=== PATIENT | female | born 1940 | race Caucasian/White ===

== ENCOUNTER 2017-06-09 10:36 | Day surgery (SDC) | payer MEDICARE ==
[2017-05-29 15:43] VITALS: BMI 18.2
[~2017-06-09 10:36] MED LIST: LACTATED RINGERS 1,000 ML IV SCH; LIDOCAINE 1% 20 ML VIAL (10MG/ML) FOR IV START INTRADERMA PRN; ONDANSETRON 4 MG/2 ML VIAL IVP ONE
[2017-06-09] MEDS: CYCLOPENTOLATE 1% OPHTH SOLN 2 ML BTL OP ONE ×3 (12:20→12:37)
[2017-06-09 12:23] VITALS: RESP 16; TEMP 97.9
[2017-06-09] MEDS: FLURBIPROFEN 0.03% OPHTH DROPS 2.5 ML BTL OP ONE ×3 (12:23→12:43)
[2017-06-09] MEDS: PHENYLEPHRINE 10% OPHTH DROPS 5 ML BTL OP ONE ×3 (12:26→12:44)
[2017-06-09] MEDS ORDERED: PROPOFOL 10 MG/ML 20 ML VIAL IV ONE (12:51)
[2017-06-09] MEDS ORDERED: HYALURONATE SODIUM INTRAOCULAR 1 EACH SYRINGE (10MG/ML) INTRAOCULA ONE (12:56)
[2017-06-09] MEDS ORDERED: BALANCED SALT IRRIG SOLN COMB2 15 ML IRRIG.SOLN INTRAOCULA ONE (12:56)
--- NOTE | 2017-06-09 13:14 | P.OP ---
Date of Procedure: 06/09/17 Procedure(s) Performed: PREOPERATIVE DIAGNOSIS: Cataract, right eye. POSTOPERATIVE DIAGNOSIS: Cataract, right eye. OPERATION: Phacoemulsification cataract, right eye. DESCRIPTION OF PROCEDURE: The patient was taken to the preoperative holding area. Intravenous Propofol was given so as to bring about adequate sedation. The following mixture was given for local anesthesia: 5 mL of 2% lidocaine, 5 mL of 0.75% Marcaine, and 1 mL of Wydase. Approximately 4 mL was injected in the retrobulbar space of the surgical eye. Additional 1 mL was then directed to the temporal area of the surgical eye. This was performed to allow adequate neurological block of the facial muscles. The patient was revived and then taken into the operative room. The patient was prepped and draped in the usual sterile manner for the operative eye. A lid speculum was put into position. The conjunctiva was resected back from the limbus in the 12 o'clock position. Bleeding was controlled with electrocautery. A #69 blade was then used and a half-thickness scleral incision approximately 1-mm posterior to the limbus was made on bare sclera. This was shelved in the clear cornea using a crescent knife. Next a 15-degree blade was used to make a stab incision at the 3 o' clock position at the corneolimbal interface. Keratome blade was then used and the superior wound was extended into the anterior chamber. Viscoelastic was injected into the anterior chamber and to maintain its form. Next, a cystotome was used and a continuous anterior capsulotomy was made without difficulty. Hydrodissection using a blunt cannula and BSS was performed. Phaco probe was then employed and a groove extending from 12 to 6 o'clock in the lens was created. A Prem wand was used through the stab incision so as to perform a divide and conquer technique. Next an irrigation aspiration probe was utilized and any residual cortex was removed from the eye. Again, viscoelastic was injected into the anterior chamber. An Thomsa posterior chamber lens implant was placed in the cartridge and injected into the anterior chamber without difficulty. The SinFindThatCourseey hook was utilized to spin the lens into position and this was again performed without any difficulty. The irrigation and aspiration probe was again employed and any residual viscoelastic was removed from the eye. Then BSS was injected into the limbal stab incision and the anterior chamber re-inflated. The conjunctiva was reapproximated using electrocautery. One drop of 0.25% Timoptic was placed over the corneal along with TobraDex ophthalmic ointment. Two sterile patches and a Elkins eye shield were taped into position. The patient was transported to the recovery room in stable condition. Pathology: none sent Condition: stable Disposition: same day
[2017-06-09 13:39] VITALS: BP 160/77; PULSE 66
[2017-06-09] MEDS ORDERED: EPINEPHrine (PF) 0.5 ML in BALANCED SALT IRRIG SOLN COMB2 500 ML IRRIGATION ONE (13:40)
[2017-06-09] MEDS ORDERED: BUPIVACAINE (PF) 0.75% 5 ML, HYALURONIDASE, HUMAN RECOMB 150 UNIT, LIDOCAINE 2% (PF) 10... MISCELLANE ONE ×3 (23:00)
[2017-06-09] MEDS ORDERED: TIMOLOL 0.5% OPHTH SOLN (PF) 0.2 ML DROPERETTE OP ONE (23:00)
[2017-06-09] MEDS ORDERED: GENTAMICIN/PREDNISOL AC OPHTH OINT 3.5GM OPHTHALMIC ONE (23:00)
== END 2017-06-09 14:02 | disposition home or self-care (01) ==
LOC: OR 10:36
PROVIDERS: ATTEND Ophthalmology
DX: H25.11 Age-related nuclear cataract, right eye (principal); I10 Essential (primary) hypertension; R00.0 Tachycardia, unspecified; Z88.6 Allergy status to analgesic agent; Z79.899 Other long term (current) drug therapy; Z79.82 Long term (current) use of aspirin
CPT/HCPCS: 66984; V2632; J3470; J2001; J0171; J2704

== ENCOUNTER 2017-07-07 06:12 | Day surgery (SDC) | payer MEDICARE ==
[2017-07-03 12:24] VITALS: BMI 18.2
[~2017-07-07 06:12] MED LIST changes: -LIDOCAINE 1% 20 ML VIAL (10MG/ML) FOR IV START INTRADERMA PRN; -ONDANSETRON 4 MG/2 ML VIAL IVP ONE
[2017-07-07] MEDS: CYCLOPENTOLATE 1% OPHTH SOLN 2 ML BTL OP ONE ×3 (06:44→07:01)
[2017-07-07 06:46] VITALS: TEMP 97.2
[2017-07-07] MEDS ORDERED: LIDOCAINE 1% 20 ML VIAL (10MG/ML) FOR IV START INTRADERMA ONE (06:46)
[2017-07-07] MEDS: FLURBIPROFEN 0.03% OPHTH DROPS 2.5 ML BTL OP ONE ×3 (06:47→07:03)
[2017-07-07] MEDS: PHENYLEPHRINE 10% OPHTH DROPS 5 ML BTL OP ONE ×3 (06:50→07:07)
[2017-07-07] MEDS ORDERED: MIDAZOLAM 2 MG/2 ML VIAL ONE (07:52)
[2017-07-07] MEDS ORDERED: PROPOFOL 10 MG/ML 20 ML VIAL IV ONE (07:52)
[2017-07-07] MEDS ORDERED: fentaNYL (PF) 50 MCG/ML 2 ML AMP ONE (07:52)
[2017-07-07] MEDS ORDERED: EPINEPHrine (PF) 0.5 ML in BALANCED SALT IRRIG SOLN COMB2 500 ML IRRIGATION ONE (07:58)
[2017-07-07] MEDS ORDERED: HYALURONATE SODIUM INTRAOCULAR 1 EACH SYRINGE (10MG/ML) INTRAOCULA ONE (08:00)
[2017-07-07] MEDS ORDERED: BALANCED SALT IRRIG SOLN COMB2 15 ML IRRIG.SOLN IRRIGATION ONE (08:00)
--- NOTE | 2017-07-07 08:18 | P.OP ---
Date of Procedure: 07/07/17 Procedure(s) Performed: PREOPERATIVE DIAGNOSIS: Cataract, left eye. POSTOPERATIVE DIAGNOSIS: Cataract, left eye. OPERATION: Phacoemulsification cataract, left eye. DESCRIPTION OF PROCEDURE: The patient was taken to the preoperative holding area. Intravenous Propofol was given so as to bring about adequate sedation. The following mixture was given for local anesthesia: 5 mL of 2% lidocaine, 5 mL of 0.75% Marcaine, and 1 mL of Wydase. Approximately 4 mL was injected in the retrobulbar space of the surgical eye. Additional 1 mL was then directed to the temporal area of the surgical eye. This was performed to allow adequate neurological block of the facial muscles. The patient was revived and then taken into the operative room. The patient was prepped and draped in the usual sterile manner for the operative eye. A lid speculum was put into position. The conjunctiva was resected back from the limbus in the 12 o'clock position. Bleeding was controlled with electrocautery. A #69 blade was then used and a half-thickness scleral incision approximately 1-mm posterior to the limbus was made on bare sclera. This was shelved in the clear cornea using a crescent knife. Next a 15-degree blade was used to make a stab incision at the 3 o' clock position at the corneolimbal interface. Keratome blade was then used and the superior wound was extended into the anterior chamber. Viscoelastic was injected into the anterior chamber and to maintain its form. Next, a cystotome was used and a continuous anterior capsulotomy was made without difficulty. Hydrodissection using a blunt cannula and BSS was performed. Phaco probe was then employed and a groove extending from 12 to 6 o'clock in the lens was created. A Prem wand was used through the stab incision so as to perform a divide and conquer technique. Next an irrigation aspiration probe was utilized and any residual cortex was removed from the eye. Again, viscoelastic was injected into the anterior chamber. An Thomas posterior chamber lens implant was placed in the cartridge and injected into the anterior chamber without difficulty. The Sinitembaseey hook was utilized to spin the lens into position and this was again performed without any difficulty. The irrigation and aspiration probe was again employed and any residual viscoelastic was removed from the eye. Then BSS was injected into the limbal stab incision and the anterior chamber re-inflated. The conjunctiva was reapproximated using electrocautery. One drop of 0.25% Timoptic was placed over the corneal along with TobraDex ophthalmic ointment. Two sterile patches and a Elkins eye shield were taped into position. The patient was transported to the recovery room in stable condition. Pathology: none sent Condition: stable Disposition: same day
[2017-07-07 08:41] VITALS: BP 164/77; PULSE 59; RESP 18
[2017-07-07] MEDS ORDERED: TIMOLOL 0.5% OPHTH DROPS 5 ML BTL OP ONE (23:00)
[2017-07-07] MEDS ORDERED: GENTAMICIN/PREDNISOL AC OPHTH OINT 3.5GM OPHTHALMIC ONE (23:00)
[2017-07-07] MEDS ORDERED: BUPIVACAINE (PF) 0.75% 5 ML, HYALURONIDASE, HUMAN RECOMB 150 UNIT, LIDOCAINE 2% (PF) 10... MISCELLANE ONE ×3 (23:00)
== END 2017-07-07 08:56 | disposition home or self-care (01) ==
LOC: OR 06:12
PROVIDERS: ATTEND Ophthalmology
DX: H25.12 Age-related nuclear cataract, left eye (principal); H18.459 Nodular corneal degeneration, unspecified eye; I10 Essential (primary) hypertension; Z79.82 Long term (current) use of aspirin; Z79.899 Other long term (current) drug therapy; Z79.3 Long term (current) use of hormonal contraceptives; Z88.6 Allergy status to analgesic agent
CPT/HCPCS: 66984; V2632; J2250; J3470; J2001; J0171; J3010; J2704

== ENCOUNTER → 2017-10-20 | Outpatient (CLI) | payer MEDICARE ==
--- NOTE | 2017-10-21 14:29 | MM ---
Reason for exam: screening (asymptomatic). Last mammogram was performed 2 years and 11 months ago. History: Patient is postmenopausal. Family history of breast cancer in mother. Physical Findings: A clinical breast exam by your physician is recommended on an annual basis and results should be correlated with mammographic findings. MG 3D Screening Mammo W/Cad Bilateral CC and MLO view(s) were taken. Prior study comparison: November 22, 2014, mammogram, performed at [facility]. March 23, 2013, mammogram, performed at [facility]. The breast tissue is heterogeneously dense. This may lower the sensitivity of mammography. Benign appearing bilateral calcifications. No suspicious abnormality. No significant changes when compared with prior studies. ASSESSMENT: Benign, BI-RAD 2 RECOMMENDATION: Routine screening mammogram of both breasts in 1 year.
== END | disposition home or self-care (01) ==
LOC: RADMAMWWP 10:42
PROVIDERS: ATTEND Family Medicine
DX: Z12.31 Encounter for screening mammogram for malignant neoplasm of breast (principal)
CPT/HCPCS: 77063; 77067

== ENCOUNTER → 2017-11-04 | Outpatient (CLI) | payer MEDICARE ==
--- NOTE | 2017-11-04 15:24 | US ---
EXAMINATION TYPE: US thyroid st tissue head/neck DATE OF EXAM: 11/04/2017 COMPARISON: NONE CLINICAL HISTORY: E05.90 Thyroid toxicosis. Hyperthyroidism GLAND SIZE: Right Lobe: 2.7 x 1.3 x 1.1 cm Overall Parenchyma: homogenous Left Lobe: 3.7 x 1.3 x 1.3 cm Overall Parenchyma: homogeneous Isthmus Thickness: 0.2 cm NODULES RIGHT: # of nodules measured on right: 0 LEFT: # of nodules measured on left: 0 ISTHMUS: # of nodules measured in the isthmus: 0 Bilateral neck scanned, no evidence of lymphadenopathy. IMPRESSION: No suspicious nodularity within the thyroid lobes.
== END | disposition home or self-care (01) ==
LOC: RADUSWWP 14:22
PROVIDERS: ATTEND Family Medicine
DX: E05.90 Thyrotoxicosis, unspecified without thyrotoxic crisis or storm (principal)
CPT/HCPCS: 76536

== ENCOUNTER → 2017-11-09 | Outpatient (CLI) | payer MEDICARE ==
--- NOTE | 2017-11-09 10:46 | CT ---
EXAMINATION TYPE: CT chest wo con DATE OF EXAM: 11/09/2017 COMPARISON: 02/11/2016 HISTORY: 77-year-old female SPN TECHNIQUE: Contiguous axial scanning of the chest without IV contrast. Coronal and sagittal reconstru ctions performed. CT DLP: 97.20 mGycm Automated exposure control for dose reduction was used. FINDINGS: Heart is normal size without pericardial effusion. Coronary vessel calcifications are fairly extensiv e and are remarkable for coronary disease. Borderline ectatic ascending aorta at 3.6 cm. Conventional arch vessel branching anatomy. Mild athero sclerotic arch calcifications. Extensive calcified mediastinal and hilar lymph nodes compatible with prior granulomatous disease. No thoracic lymphadenopathy by CT size criteria. Scattered calcified granulomas within the right lung. A noncalcified 6 mm right basilar pulmonary nodule remains unchanged from 2016. 4 mm pulmonary nodule along the superior right major fissure axial image 20 is stable. Biapical pleural parenchymal scarring. No consolidation or pleural effusion. Irregular area of cortical calcification measuring 1.7 cm lateral left kidney remains unchanged from 2016 suggesting a benign etiology. Bones: No osseous destructive process. IMPRESSION: 1. REDEMONSTRATED CAD AND PRIOR GRANULOMATOUS DISEASE. NO ACUTE PULMONARY PROCESS. 2. A COUPLE NONCALCIFIED PULMONARY NODULES MEASURING UP TO 6 MM ARE STABLE FROM 2016 COMPATIBLE WITH A BENIGN ETIOLOGY.
== END | disposition home or self-care (01) ==
LOC: RADCTMAIN 08:25
PROVIDERS: ATTEND Family Medicine
DX: R91.8 Other nonspecific abnormal finding of lung field (principal); J84.10 Pulmonary fibrosis, unspecified; I25.10 Atherosclerotic heart disease of native coronary artery without angina pectoris
CPT/HCPCS: 71250

== ENCOUNTER 2018-05-14 01:07 | Inpatient (IN) | payer MEDICARE ==
[2018-05-14 02:03] LABS: Basophils % (A) 1 %; Eosinophils # (A) 0.3 k/uL (0-0.7); Eosinophils % (A) 5 %; HCT 39.9 % (34.0-46.0); Lymphocytes # (A) 2.4 k/uL (1.0-4.8); Lymphocytes % (A) 39 %; MCH 28.7 pg (25.0-35.0); MCHC 32.5 g/dL (31.0-37.0); MCV 88.5 fL (80.0-100.0); Mean Platelet Volume 6.9; Monocytes # (A) 0.4 k/uL (0-1.0); Monocytes % (A) 6 %; Neutrophils # (A) 2.9 k/uL (1.3-7.7); Neutrophils % (A) 47 %; Platelet Count 246 k/uL (150-450); RBC 4.51 m/uL (3.80-5.40); RDW 13.8 % (11.5-15.5); WBC 6.1 k/uL (3.8-10.6)
[2018-05-14 02:15] LABS: INR 0.9 (<1.2); Partial Thromboplastin Time 25.1 sec (22.0-30.0); Prothrombin Time 9.7 sec (9.0-12.0)
[2018-05-14 02:25] LABS: ALT 19 U/L (9-52); AST 24 U/L (14-36); Albumin 4.1 g/dL (3.5-5.0); Alkaline Phosphatase 114 U/L (38-126); Anion Gap 8 mmol/L; Blood Urea Nitrogen 15 mg/dL (7-17); Calcium 9.5 mg/dL (8.4-10.2); Carbon Dioxide 27 mmol/L (22-30); Chloride 108 mmol/L (98-107); Glucose 97 mg/dL (74-99); Magnesium 2.3 mg/dL (1.6-2.3); Potassium 3.7 mmol/L (3.5-5.1); Sodium 143 mmol/L (137-145); Total Bilirubin 0.4 mg/dL (0.2-1.3); Total Protein 7.3 g/dL (6.3-8.2)
--- NOTE | 2018-05-14 02:28 | XR ---
EXAMINATION TYPE: XR chest 2V DATE OF EXAM: 05/14/2018 COMPARISON: 04/14/2015 HISTORY: Chest pain TECHNIQUE: Frontal and lateral views of the chest are obtained. FINDINGS: There is no heart failure nor confluent pneumonic infiltrate. Heart size is normal. There are numerous granulomata with calcification in the mediastinum. There is no pleural effusion. Bony th orax is intact. IMPRESSION: No active cardiopulmonary disease. Old granulomatous disease. No change.
--- NOTE | 2018-05-14 02:30 | ED ---
General Adult HPI - General Chief complaint: Recheck/Abnormal Lab/Rx Stated complaint: Chest Pain, High BP Time Seen by Provider: 05/14/18 02:29 Source: patient Mode of arrival: ambulatory Limitations: no limitations - History of Present Illness Initial comments: This patient is an 78-year-old woman who presents with complaint of chest pain that is been going on since about midnight. The patient states that she had been trying to rest. She had also a little bit of anxiety because her blood pressure has been elevated today. She states that she has taken her blood pressure medications. She was not having symptoms earlier, but she went to a flu shot and was told that they could not give her the shot because her blood pressure was over 200. The patient states that she tried taking her medication when she got home and resting comfortably blood pressure remained elevated. Tonight around midnight she noticed the chest pressure and was feeling a little bit nauseated. Onset/Timin -: hour(s) Location: chest Radiation: non-radiation Quality: dull Consistency: constant Improves with: none Worsens with: none Associated Symptoms: nausea/vomiting Treatments Prior to Arrival: none - Related Data Home Medications Medication Instructions Recorded Confirmed Aspirin 81 mg PO DAILY 04/01/15 05/14/18 Famotidine [Pepcid AC] 10 mg PO BID PRN 05/14/18 05/14/18 Previous Rx's Medication Instructions Recorded Acetaminophen Tab [Tylenol] 650 mg PO Q6HR PRN tab 05/15/18 Losartan [Cozaar] 100 mg PO QAM #30 tab 05/15/18 Nitroglycerin Sl Tabs [Nitrostat] 0.4 mg SUBLINGUAL Q5M PRN #30 tab 05/15/18 amLODIPine [Norvasc] 5 mg PO DAILY #30 tab 05/15/18 Allergies Allergy/AdvReac Type Severity Reaction Status Date / Time naproxen [From Aleve] Allergy elevated Verified 05/14/18 07:42 b/p,generalized skin redness Review of Systems ROS Statement: Those systems with pertinent positive or pertinent negative responses have been documented in the HPI. ROS Other: All systems not noted in ROS Statement are negative. Constitutional: Denies: fever, chills Respiratory: Denies: cough, dyspnea Cardiovascular: Reports: chest pain. Denies: palpitations, edema, syncope Gastrointestinal: Denies: abdominal pain, nausea, vomiting Genitourinary: Denies: dysuria, hematuria Musculoskeletal: Denies: back pain Skin: Denies: rash Neurological: Denies: headache, weakness, numbness Past Medical History Past Medical History: Eye Disorder, GERD/Reflux, Hyperlipidemia, Hypertension Additional Past Medical History / Comment(s): Rt Cataract REMOVED 06/09/17; HAS LT CATARACT. C/O CONSTIPATION. History of Any Multi-Drug Resistant Organisms: None Reported Past Surgical History: Hernia Repair, Orthopedic Surgery Additional Past Surgical History / Comment(s): Bunion Al Feet. EXC RT CATARACT. I&D OF SPINAL SITE. Past Anesthesia/Blood Transfusion Reactions: Family History of Problems w/ Anesthesia, Motion Sickness Additional Past Anesthesia/Blood Transfusion Reaction / Comment(s): SISTER TAKES LONG TIME TO AWAKEN. Past Psychological History: No Psychological Hx Reported Smoking Status: Never smoker Past Alcohol Use History: None Reported Past Drug Use History: None Reported - Past Family History Mother Family Medical History: Congestive Heart Failure (CHF), Deep Vein Thrombosis ( DVT) Brother(s) Family Medical History: Cancer Sister(s) Family Medical History: Cancer General Exam Limitations: no limitations General appearance: alert, in no apparent distress Head exam: Present: atraumatic, normocephalic Eye exam: Present: normal appearance ENT exam: Present: normal oropharynx Neck exam: Present: normal inspection Respiratory exam: Present: normal lung sounds bilaterally. Absent: respiratory distress, wheezes, rales, rhonchi, stridor, chest wall tenderness Cardiovascular Exam: Present: regular rate, normal rhythm, normal heart sounds. Absent: systolic murmur, diastolic murmur, rubs, gallop GI/Abdominal exam: Present: soft. Absent: distended, tenderness, guarding, rebound, rigid Extremities exam: Present: normal inspection, normal capillary refill. Absent: pedal edema, calf tenderness Back exam: Present: normal inspection. Absent: CVA tenderness (R), CVA tenderness (L) Neurological exam: Present: alert Skin exam: Present: warm, dry, intact, normal color. Absent: rash Course Vital Signs 05/14/18 05/14/18 05/14/18 01:08 01:36 02:00 Temperature 97.9 F Pulse Rate 64 54 L 51 L Pulse Rate [ Left Brachial] Respiratory 16 16 12 Rate Blood Pressure 200/87 189/106 Blood Pressure [Left Arm] O2 Sat by Pulse 99 98 99 Oximetry 05/14/18 05/14/18 05/14/18 02:30 03:00 03:30 Temperature Pulse Rate 60 58 L 55 L Pulse Rate [ Left Brachial] Respiratory 14 10 L 14 Rate Blood Pressure 170/80 188/85 167/81 Blood Pressure [Left Arm] O2 Sat by Pulse 98 99 Oximetry 05/14/18 05/14/18 04:00 04:21 Temperature 97.5 F L 97.6 F Pulse Rate 65 Pulse Rate [ 66 Left Brachial] Respiratory 18 18 Rate Blood Pressure 162/79 Blood Pressure 162/70 [Left Arm] O2 Sat by Pulse 98 99 Oximetry EKG Findings - EKG Comments: EKG Findings:: Possible old inferior infarct. - EKG Results: EKG: interpreted by DALE, sinus rhythm, normal axis, normal ST/T EKG shows: bradycardia (Rate 58 bpm) Medical Decision Making - Lab Data Result diagrams: 05/14/18 01:20 05/14/18 01:20 Lab Results 05/14/18 05/14/18 05/14/18 Range/Units 01:20 01:20 01:20 WBC 6.1 (3.8-10.6) k/uL RBC 4.51 (3.80-5.40) m/uL Hgb 13.0 (11.4-16.0) gm/dL Hct 39.9 (34.0-46.0) % MCV 88.5 (80.0-100.0) fL MCH 28.7 (25.0-35.0) pg MCHC 32.5 (31.0-37.0) g/dL RDW 13.8 (11.5-15.5) % Plt Count 246 (150-450) k/uL Neutrophils % 47 % Lymphocytes % 39 % Monocytes % 6 % Eosinophils % 5 % Basophils % 1 % Neutrophils # 2.9 (1.3-7.7) k/uL Lymphocytes # 2.4 (1.0-4.8) k/uL Monocytes # 0.4 (0-1.0) k/uL Eosinophils # 0.3 (0-0.7) k/uL Basophils # 0.0 (0-0.2) k/uL PT (9.0-12.0) sec INR (<1.2) APTT (22.0-30.0) sec Sodium 143 (137-145) mmol/L Potassium 3.7 (3.5-5.1) mmol/L Chloride 108 H (98-107) mmol/L Carbon Dioxide 27 (22-30) mmol/L Anion Gap 8 mmol/L BUN 15 (7-17) mg/dL Creatinine 0.65 (0.52-1.04) mg/dL Est GFR (CKD-EPI)AfAm >90 (>60 ml/min/1.73 sqM) Est GFR (CKD-EPI)NonAf 84 (>60 ml/min/1.73 sqM) Glucose 97 (74-99) mg/dL Calcium 9.5 (8.4-10.2) mg/dL Magnesium 2.3 (1.6-2.3) mg/dL Total Bilirubin 0.4 (0.2-1.3) mg/dL AST 24 (14-36) U/L ALT 19 (9-52) U/L Alkaline Phosphatase 114 (38-126) U/L Total Creatine Kinase 103 (30-135) U/L CK-MB (CK-2) 1.7 (0.0-2.4) ng/mL CK-MB (CK-2) Rel Index 1.7 Troponin I <0.012 (0.000-0.034) ng/mL Total Protein 7.3 (6.3-8.2) g/dL Albumin 4.1 (3.5-5.0) g/dL 05/14/18 Range/Units 01:20 WBC (3.8-10.6) k/uL RBC (3.80-5.40) m/uL Hgb (11.4-16.0) gm/dL Hct (34.0-46.0) % MCV (80.0-100.0) fL MCH (25.0-35.0) pg MCHC (31.0-37.0) g/dL RDW (11.5-15.5) % Plt Count (150-450) k/uL Neutrophils % % Lymphocytes % % Monocytes % % Eosinophils % % Basophils % % Neutrophils # (1.3-7.7) k/uL Lymphocytes # (1.0-4.8) k/uL Monocytes # (0-1.0) k/uL Eosinophils # (0-0.7) k/uL Basophils # (0-0.2) k/uL PT 9.7 (9.0-12.0) sec INR 0.9 (<1.2) APTT 25.1 (22.0-30.0) sec Sodium (137-145) mmol/L Potassium (3.5-5.1) mmol/L Chloride (98-107) mmol/L Carbon Dioxide (22-30) mmol/L Anion Gap mmol/L BUN (7-17) mg/dL Creatinine (0.52-1.04) mg/dL Est GFR (CKD-EPI)AfAm (>60 ml/min/1.73 sqM) Est GFR (CKD-EPI)NonAf (>60 ml/min/1.73 sqM) Glucose (74-99) mg/dL Calcium (8.4-10.2) mg/dL Magnesium (1.6-2.3) mg/dL Total Bilirubin (0.2-1.3) mg/dL AST (14-36) U/L ALT (9-52) U/L Alkaline Phosphatase (38-126) U/L Total Creatine Kinase (30-135) U/L CK-MB (CK-2) (0.0-2.4) ng/mL CK-MB (CK-2) Rel Index Troponin I (0.000-0.034) ng/mL Total Protein (6.3-8.2) g/dL Albumin (3.5-5.0) g/dL Disposition Clinical Impression: Chest pain Disposition: HOME SELF-CARE Condition: Fair Is patient prescribed a controlled substance at d/c from ED?: No
[2018-05-14 02:32] LABS: Creatine Kinase 103 U/L (30-135)
[2018-05-14 02:46] LABS: Creatine Kinase MB 1.7 ng/mL (0.0-2.4); Troponin I <0.012 ng/mL (0.000-0.034)
[2018-05-14] MEDS ORDERED: NITROGLYCERIN OINT 1 INCH/GM PACKET TOPICAL STA (02:49)
[2018-05-14] MEDS ORDERED: NITROGLYCERIN SL TABS 0.4 MG TAB SUBLINGUAL PRN (02:50)
[2018-05-14] MEDS ORDERED: ENALAPRILAT 1.25 MG/ML 1 ML VIAL IVP STA (02:55)
[2018-05-14 05:16] VITALS: BMI 18.1
[2018-05-14 07:12] LABS: Creatine Kinase 76 U/L (30-135)
[2018-05-14 07:22] LABS: Creatine Kinase MB 1.2 ng/mL (0.0-2.4); Troponin I <0.012 ng/mL (0.000-0.034)
[2018-05-14] MEDS ORDERED: ASPIRIN 325 MG TAB PO SCH (09:00)
[2018-05-14] MEDS ORDERED: LOSARTAN 25 MG TAB PO SCH (09:00)
[2018-05-14] MEDS ORDERED: LOSARTAN 50 MG TAB PO STA (10:09)
--- NOTE | 2018-05-14 10:11 | P.CRDCN ---
History of Present Illness Consult date: 05/14/18 Requesting physician: Edwin Parks Consult reason: chest pain, hypertension Chief complaint: Chest heaviness, hypertension History of present illness: This is a pleasant 78-year-old female with history of hypertension, no diabetes, no hyperlipidemia, nonsmoker, no EtOH, who is overall fairly active. She states that recently her blood pressure has been running quite high , she went to see her physician yesterday, blood pressure in the office was greater than 200 systolic, she was going there to get her flu shot. She states that they did not give her her flu shot because her blood pressure was too high. She went home, states that the blood pressure remained elevated in spite of her taking her blood pressure medication. She states then that she also noticed some mild pressure in the chest and for this reason came to the hospital for further evaluation. Chest x-ray did not reveal any active cardiopulmonary disease. EKG shows a sinus bradycardia with no acute changes. Blood pressure on arrival here 200/87, heart rate in the 60s, 99% on room air. Blood pressure this morning 162/70 with a heart rate in the 60s, 99% on room air. White blood cell count 6.1, hemoglobin 13, platelet count 246. Sodium 143 , potassium 3.7, BUN 15, creatinine 0.6. Troponins negative 2. Patient's home medications included losartan 50 mg daily, Pepcid twice a day, and a baby aspirin. Here the patient has been placed on a full aspirin, she was given one dose of enalapril IV on arrival here, continues to be on the losartan, and was also placed on Nitropaste. Past Medical History Past Medical History: Eye Disorder, GERD/Reflux, Hyperlipidemia, Hypertension Additional Past Medical History / Comment(s): Rt Cataract REMOVED 06/09/17; HAS LT CATARACT. C/O CONSTIPATION. History of Any Multi-Drug Resistant Organisms: None Reported Past Surgical History: Hernia Repair, Orthopedic Surgery Additional Past Surgical History / Comment(s): Bunion Al Feet. EXC RT CATARACT. I&D OF SPINAL SITE. Past Anesthesia/Blood Transfusion Reactions: Family History of Problems w/ Anesthesia, Motion Sickness Additional Past Anesthesia/Blood Transfusion Reaction / Comment(s): SISTER TAKES LONG TIME TO AWAKEN. Smoking Status: Never smoker - Past Family History Mother Family Medical History: Congestive Heart Failure (CHF), Deep Vein Thrombosis ( DVT) Brother(s) Family Medical History: Cancer Sister(s) Family Medical History: Cancer Medications and Allergies Home Medications Medication Instructions Recorded Confirmed Type Aspirin 81 mg PO DAILY 04/01/15 05/14/18 History Famotidine [Pepcid AC] 10 mg PO BID PRN 05/14/18 05/14/18 History Losartan Potassium 50 mg PO DAILY 05/14/18 05/14/18 History Allergies Allergy/AdvReac Type Severity Reaction Status Date / Time naproxen [From Aleve] Allergy elevated Verified 05/14/18 07:42 b/p,generalized skin redness Physical Exam Vitals: Vital Signs Temp Pulse Pulse Resp BP BP Pulse Ox 05/14/18 04:21 97.6 F 65 18 162/79 99 05/14/18 04:00 97.5 F L 66 18 162/70 98 05/14/18 03:30 55 L 14 167/81 05/14/18 03:00 58 L 10 L 188/85 99 05/14/18 02:30 60 14 170/80 98 05/14/18 02:00 51 L 12 189/106 99 05/14/18 01:36 54 L 16 98 05/14/18 01:08 97.9 F 64 16 200/87 99 Intake and Output 05/13/18 05/14/18 05/14/18 22:59 06:59 14:59 Other: Voiding Method Toilet # Voids 1 Weight 40.823 kg PHYSICAL EXAMINATION: GENERAL: 78-year-old female in no acute distress at the time of my examination HEENT: Head is atraumatic, normocephalic. Pupils equal, round. Sclera anicteric. Conjunctiva are clear. Mucous membranes of the mouth are moist. Neck is supple. There is no elevated jugular venous pressure. No carotid bruit is heard. HEART EXAMINATION: Heart S1 and S2 with soft systolic murmur is heard CHEST EXAMINATION: Lungs are clear to auscultation and precussion. No chest wall tenderness is noted on palpation or with deep breathing. ABDOMEN: Soft, nontender. Bowel sounds are heard. No organomegaly noted. EXTREMITIES: 2+ peripheral pulses with no evidence of peripheral edema and no calf tenderness noted. NEUROLOGIC patient is awake, alert and oriented 3 . Results 05/14/18 01:20 05/14/18 01:20 Cardiac Enzymes 05/14/18 05/14/18 05/14/18 Range/Units 01:20 01:20 06:20 AST 24 (14-36) U/L CK-MB (CK-2) 1.7 1.2 (0.0-2.4) ng/mL Troponin I <0.012 <0.012 (0.000-0.034) ng/mL Coagulation 05/14/18 Range/Units 01:20 PT 9.7 (9.0-12.0) sec APTT 25.1 (22.0-30.0) sec CBC 05/14/18 Range/Units 01:20 WBC 6.1 (3.8-10.6) k/uL RBC 4.51 (3.80-5.40) m/uL Hgb 13.0 (11.4-16.0) gm/dL Hct 39.9 (34.0-46.0) % Plt Count 246 (150-450) k/uL Comprehensive Metabolic Panel 05/14/18 Range/Units 01:20 Sodium 143 (137-145) mmol/L Potassium 3.7 (3.5-5.1) mmol/L Chloride 108 H (98-107) mmol/L Carbon Dioxide 27 (22-30) mmol/L BUN 15 (7-17) mg/dL Creatinine 0.65 (0.52-1.04) mg/dL Glucose 97 (74-99) mg/dL Calcium 9.5 (8.4-10.2) mg/dL AST 24 (14-36) U/L ALT 19 (9-52) U/L Alkaline Phosphatase 114 (38-126) U/L Total Protein 7.3 (6.3-8.2) g/dL Albumin 4.1 (3.5-5.0) g/dL Current Medications Generic Name Dose Route Start Last Admin Trade Name Freq PRN Reason Stop Dose Admin Aspirin 325 mg 05/14/18 09:00 05/14/18 08:53 Aspirin PO 325 mg DAILY RASHIDA Administration Losartan Potassium 50 mg 05/14/18 09:00 05/14/18 08:53 Cozaar PO 50 mg QAM RASHIDA Administration Nitroglycerin 0.4 mg 05/14/18 02:50 Nitrostat SUBLINGUAL Q5M PRN Chest Pain Intake and Output 05/13/18 05/14/18 05/14/18 22:59 06:59 14:59 Other: Voiding Method Toilet # Voids 1 Weight 40.823 kg 05/14/18 01:20 05/14/18 01:20 EKG Interpretations (text) EKG shows a sinus bradycardia with no acute changes. Assessment and Plan Plan: Assessment and plan #1 accelerated hypertension #2 chest pressure and heaviness which could be secondary to accelerated hypertension, cannot completely rule out underlying coronary artery disease. Troponins are negative 2. EKG shows sinus bradycardia with no acute changes. #3 GERD Plan We will obtain an echocardiogram with Doppler study. We will add Norvasc to the patient's medication regime, decrease aspirin 81 mg daily. Once the blood pressure is under better control patient would benefit from having a stress test performed, perhaps as an outpatient. Follow-up appointment with Dr. Willams in the office. Further recommendations to follow. DNP note has been reviewed, I agree with a documented findings and plan of care. Patient was seen and examined.
--- NOTE | 2018-05-14 11:25 | P.HPIM ---
History of Present Illness 78-year-old pleasant female came in with compensative chest pressure like sensation and found to have very highly elevated blood the blood pressure of 200 patient the came to ER because of elevated blood pressure and chest pressure like sensation with pain radiating to the left side of the neck denied any fever chills. Troponins are negative EKG showed sinus bradycardia without any acute ST-T wave changes. Patient pain lasted for few hours until she came to ER, no diaphoresis no shortness of breath associated with that. Patient takes losartan 50 mg daily which is being increased to 100 mg given additional dose of losartan here before rashes discharged patient is presently on Nitropaste cardiology was consulted. Patient the may need a stress test once a stresses is negative patient may be able to go home if that is negative. Patient denied any fever chills cough runny nose chest pain is nonpleuritic not associated with food Review of Systems REVIEW OF SYSTEMS: CONSTITUTIONAL: No fever, no malaise, no fatigue. HEENT: No recent visual problems or hearing problems. Denied any sore throat. CARDIOVASCULAR: No orthopnea, PND, no palpitations, no syncope. PULMONARY: No shortness of breath, no cough, no hemoptysis. GASTROINTESTINAL: No diarrhea, no nausea, no vomiting, no abdominal pain. NEUROLOGICAL: No headaches, no weakness, no numbness. HEMATOLOGICAL: Denies any bleeding or petechiae. GENITOURINARY: Denies any burning micturition, frequency, or urgency. MUSCULOSKELETAL/RHEUMATOLOGICAL: Denies any joint pain, swelling, or any muscle pain. ENDOCRINE: Denies any polyuria or polydipsia. The rest of the 14-point review of systems is negative. Past Medical History Past Medical History: Eye Disorder, GERD/Reflux, Hyperlipidemia, Hypertension Additional Past Medical History / Comment(s): Rt Cataract REMOVED 06/09/17; HAS LT CATARACT. C/O CONSTIPATION. History of Any Multi-Drug Resistant Organisms: None Reported Past Surgical History: Hernia Repair, Orthopedic Surgery Additional Past Surgical History / Comment(s): Bunion Al Feet. EXC RT CATARACT. I&D OF SPINAL SITE. Past Anesthesia/Blood Transfusion Reactions: Family History of Problems w/ Anesthesia, Motion Sickness Additional Past Anesthesia/Blood Transfusion Reaction / Comment(s): SISTER TAKES LONG TIME TO AWAKEN. Smoking Status: Never smoker - Past Family History Mother Family Medical History: Congestive Heart Failure (CHF), Deep Vein Thrombosis ( DVT) Brother(s) Family Medical History: Cancer Sister(s) Family Medical History: Cancer Medications and Allergies Home Medications Medication Instructions Recorded Confirmed Type Aspirin 81 mg PO DAILY 04/01/15 05/14/18 History Famotidine [Pepcid AC] 10 mg PO BID PRN 05/14/18 05/14/18 History Losartan Potassium 50 mg PO DAILY 05/14/18 05/14/18 History Allergies Allergy/AdvReac Type Severity Reaction Status Date / Time naproxen [From Aleve] Allergy elevated Verified 05/14/18 07:42 b/p,generalized skin redness Physical Exam Vitals: Vital Signs Temp Pulse Pulse Resp BP BP Pulse Ox 05/14/18 08:00 69 16 162/71 98 05/14/18 04:21 97.6 F 65 18 162/79 99 05/14/18 04:00 97.5 F L 66 18 162/70 98 05/14/18 03:30 55 L 14 167/81 05/14/18 03:00 58 L 10 L 188/85 99 05/14/18 02:30 60 14 170/80 98 05/14/18 02:00 51 L 12 189/106 99 05/14/18 01:36 54 L 16 98 05/14/18 01:08 97.9 F 64 16 200/87 99 Intake and Output 05/13/18 05/14/18 05/14/18 22:59 06:59 14:59 Other: Voiding Method Toilet Toilet # Voids 1 Weight 40.823 kg PHYSICAL EXAMINATION: GENERAL: The patient is alert and oriented x3, not in any acute distress. Well developed, well nourished. HEENT: Pupils are round and equally reacting to light. EOMI. No scleral icterus. No conjunctival pallor. Normocephalic, atraumatic. No pharyngeal erythema. No thyromegaly. CARDIOVASCULAR: S1 and S2 present. No murmurs, rubs, or gallops. PULMONARY: Chest is clear to auscultation, no wheezing or crackles. ABDOMEN: Soft, nontender, nondistended, normoactive bowel sounds. No palpable organomegaly. MUSCULOSKELETAL: No joint swelling or deformity. EXTREMITIES: No cyanosis, clubbing, or pedal edema. NEUROLOGICAL: Gross neurological examination did not reveal any focal deficits. SKIN: No rashes. Results CBC & Chem 7: 05/14/18 01:20 05/14/18 01:20 Labs: Abnormal Lab Results - Last 24 Hours (Table) 05/14/18 Range/Units 01:20 Chloride 108 H (98-107) mmol/L Thrombosis Risk Factor Assmnt - Choose All That Apply Each Risk Factor Represents 3 Points: Age 75 years or older Thrombosis Risk Factor Assessment Total Risk Factor Score: 3 Thrombosis Risk Factor Assessment Level: Moderate Risk Assessment and Plan Plan: chest pain: Rule out acute syndromes cardiology will evaluate patient if patient undergoes stresses if that's negative patient will be discharged with some changes in her anti-happens medications -Accelerated hypertension: Losartan dose will be increased patient may need another additional medication probably diuretic upon discharge. -Gastroesophageal reflux disease os ability of discharge depending on cardiology recommendations
--- NOTE | 2018-05-14 11:35 | ECHOF ---
Referral Reason:htn MEASUREMENTS -------- HEIGHT: 129.5 cm WEIGHT: 40.8 kg BP: RVIDd: 2.6 cm (< 3.3) IVSd: 1.2 cm (0.6 - 1.1) LVIDd: 3.2 cm (3.9 - 5.3) LVPWd: 1.3 cm (0.6 - 1.1) IVSs: 1.6 cm LVIDs: 1.4 cm LVPWs: 1.6 cm LAESV Index (A-L): 29.86 ml/m Ao Diam: 2.2 cm (2.0 - 3.7) AV Cusp: 1.5 cm (1.5 - 2.6) LA Diam: 2.5 cm (2.7 - 3.8) MV EXCURSION: 8.807 mm (> 18.000) MV EF SLOPE: 46 mm/s (70 - 150) EPSS: 0.3 cm MV E Harsha: 0.81 m/s MV DecT: 204 ms MV A Harsha: 0.96 m/s MV E/A Ratio: 0.85 AR PHT: 105 ms RAP: 5.00 mmHg RVSP: 33.20 mmHg FINDINGS -------- Sinus rhythm. This was a technically good study. The left ventricular size is normal. There is mild concentric left ventricular hypertrophy. Overa ll left ventricular systolic function is normal with, an EF between 55 - 60 %. The right ventricle is normal in size and function. LA is midly dilated 29-33ml/m2. The right atrium is normal in size. Aortic valve is trileaflet and is mildly thickened. Trace amount of aortic regurgitation. The mitral valve leaflets are mildly thickened. Mild mitral annular calcification present. Modera [id number]-[id number] mitral regurgitation is present. There is mild mitral valve prolapse , predominately a posteriorly directed jet. Severe tricuspid regurgitation present. The right ventricular systolic pressure, as measured by Dop pler, is 33.20mmHg. Pulmonic valve appears structurally normal. The aortic root size is normal. Normal inferior vena cava with normal inspiratory collapse consistent with estimated right atrial pre ssure of 5 mmHg. The pericardium is normal. CONCLUSIONS -------- 1. Sinus rhythm. 2. This was a technically good study. 3. The left ventricular size is normal. 4. There is mild concentric left ventricular hypertrophy. 5. Overall left ventricular systolic function is normal with, an EF between 55 - 60 %. 6. The right ventricle is normal in size and function. 7. LA is midly dilated 29-33ml/m2. 8. The right atrium is normal in size. 9. Aortic valve is trileaflet and is mildly thickened. 10. Trace amount of aortic regurgitation. 11. The mitral valve leaflets are mildly thickened. 12. Mild mitral annular calcification present. 13. [id number] mitral regurgitation is present. 14. There is mild mitral valve prolapse. 15. , predominately a posteriorly directed jet. 16. Severe tricuspid regurgitation present. 17. The right ventricular systolic pressure, as measured by Doppler, is 33.20mmHg. 18. Pulmonic valve appears structurally normal. 19. The aortic root size is normal. 20. Normal inferior vena cava with normal inspiratory collapse consistent with estimated right atrial pressure of 5 mmHg. 21. The pericardium is normal. STUDENT ACCOUNTS MANAGER: Danisha De Leon RDCS
[2018-05-14] MEDS: amLODIPine 5 MG TAB PO SCH (12:41)
[2018-05-14 13:43] LABS: Creatine Kinase 75 U/L (30-135)
[2018-05-14 13:55] LABS: Creatine Kinase MB 1.2 ng/mL (0.0-2.4); Troponin I <0.012 ng/mL (0.000-0.034)
[2018-05-14] MEDS ORDERED: ACETAMINOPHEN TAB 325 MG TAB PO PRN (20:49)
[2018-05-15 02:42] LABS: Cholesterol 241 mg/dL (<200); HDL Cholesterol 53 mg/dL (40-60); LDL Cholesterol,Calculated 144 mg/dL (0-99); Triglycerides 219 mg/dL (<150)
[2018-05-15 04:18] VITALS: RESP 18
[2018-05-15] MEDS: amLODIPine 5 MG TAB PO SCH (07:46)
[2018-05-15] MEDS ORDERED: LOSARTAN 50 MG TAB PO SCH (09:00)
[2018-05-15] MEDS ORDERED: ASPIRIN 325 MG TAB PO SCH (09:00)
[2018-05-15] MEDS ORDERED: ASPIRIN 81 MG PO SCH (09:00)
[2018-05-15 11:40] VITALS: BP 130/60; PULSE 71; TEMP 97.7
--- NOTE | 2018-05-15 13:43 | P.PN ---
Subjective Patient is doing better. She is looking very comfortable no chest discomfort dizziness lightheadedness or palpitations On examination she is afebrile 97.7F pulse rate in the 60s and 70s Blood pressure 144/68 and 130/60 mmHg on losartan 100 mg daily and amlodipine 5 mg daily Normal heart sounds are normal no gallop or rub Breath sounds are clear no rhonchi no crackles Abdomen soft nontender next and is warm no edema Impression patient presents with uncontrolled hypertension associated with chest discomfort. now, the blood pressure has improved she has no more chest pain 2-D echo shows preserved LV systolic function mild left ventricular hypertrophy mildly dilated left atrium normal RV size moderate to severe mitral regurgitation with mild mitral valve prolapse and a prominent posteriorly directed check Severe tricuspid regurgitation RVSP 33 mmHg Currently on losartan 100 mg by mouth daily and on amlodipine 5 g daily Aspirin has been discontinued Statins to continue She will go home today in follow-up with me in the office As an outpatient outperform stress test and also repeat her 2-D echo to reassess her mitral regurgitation on the blood pressure is controlled as well as assess her tricuspid regurgitation Objective - Vital Signs Vital signs: Vital Signs Temp 97.7 F 05/15/18 11:38 Pulse 71 05/15/18 11:38 Resp 18 05/15/18 11:38 BP 130/60 05/15/18 11:38 Pulse Ox 97 05/15/18 11:38 Intake & Output 05/14/18 05/15/18 05/15/18 18:59 06:59 18:59 Intake Total 354 10 360 Balance 354 10 360 Weight 40.823 kg 41.2 kg Intake: IV 10 0.9 10 Oral 354 360 Other: Voiding Method Toilet Toilet Toilet # Voids 2 1 - Labs CBC & Chem 7: 05/14/18 01:20 05/14/18 01:20 Labs: Abnormal Lab Results - Last 24 Hours (Table) 05/14/18 Range/Units 06:20 Triglycerides 219 H (<150) mg/dL Cholesterol 241 H (<200) mg/dL LDL Cholesterol, Calc 144 H (0-99) mg/dL
--- NOTE | 2018-05-15 18:39 | P.DS ---
Providers Date of admission: 05/14/18 02:51 Attending physician: Edwin Parks Consults: 05/14/18 02:51 Consult Physician Routine Consulting Provider: Kristyn Alexandre Consult Reason/Comments: chest pain Do you want consulting provider notified?: Yes Primary care physician: Mauro Schroeder [facility] Hospital Course: This is a pleasant 78 years old lady with past medical history of GERD, hyperlipidemia and hypertension comes with one day history of chest pain associated with elevated blood pressure. On admission her systolic blood pressure was in 200s. Patient received antihypertensive medication and pain medication. Patient symptoms are completely resolved and her chest pain went down to 0/10 and she was chest pain-free upon discharge. Her blood pressure is controlled with blood pressure medication and on discharge it was 130/60.2-D echo shows preserved LV systolic function mild left ventricular hypertrophy mildly dilated left atrium normal RV size moderate to severe mitral regurgitation, mild metabolic prolapse and severe tricuspid regurgitation. Patient will be discharged on low Zartan 100 mg and amlodipine 5 mg. Patient has been evaluated by spring clipper who cleared her for discharge. Patient was found stable and can be discharged home however she needs follow-up as an outpatient. Patient and at bedside agreed to call and make appointment with PCP and Dr. Anaya in one week. Gen: patient is a AAOx3, no distress CVS: S1-S2, RRR, no murmur Lungs: B/L CTA, no wheezing Abdomen: soft, no distention, no tenderness, positive bowel sounds Extremity: no leg edema or induration Time spent more than 35 minutes Patient Condition at Discharge: Fair Plan - Discharge Summary New Discharge Prescriptions: New Acetaminophen Tab [Tylenol] 650 mg PO Q6HR PRN tab PRN Reason: Fever And/ Or Pain amLODIPine [Norvasc] 5 mg PO DAILY #30 tab Losartan [Cozaar] 100 mg PO QAM #30 tab Nitroglycerin Sl Tabs [Nitrostat] 0.4 mg SUBLINGUAL Q5M PRN #30 tab PRN Reason: Chest Pain Continue Aspirin 81 mg PO DAILY Famotidine [Pepcid AC] 10 mg PO BID PRN PRN Reason: Indigestion Discontinued Losartan Potassium 50 mg PO DAILY Discharge Medication List Aspirin 81 mg PO DAILY 04/01/15 [History] Famotidine [Pepcid AC] 10 mg PO BID PRN 05/14/18 [History] Acetaminophen Tab [Tylenol] 650 mg PO Q6HR PRN tab 05/15/18 [Rx] Losartan [Cozaar] 100 mg PO QAM #30 tab 05/15/18 [Rx] Nitroglycerin Sl Tabs [Nitrostat] 0.4 mg SUBLINGUAL Q5M PRN #30 tab 05/15/18 [Rx ] amLODIPine [Norvasc] 5 mg PO DAILY #30 tab 05/15/18 [Rx] Follow up Appointment(s)/Referral(s): Cleveland Willams MD [STAFF PHYSICIAN] - 1 Week (follow up in 1-2 weks for stress test in the outpatient setting call wed for appt) Mauro Richter MD [Primary Care Provider] - 1-2 days (call office wed for appt) Patient Instructions/Handouts: Chest Pain (DC) Activity/Diet/Wound Care/Special Instructions: cardiac diet activity is limited till you see you doctor Discharge Disposition: HOME SELF-CARE
== END 2018-05-15 14:49 | disposition home or self-care (01) | DRG 305 ==
LOC: EC 01:07 → 3SCARD 02:51 → OBSVTOIN 02:51
PROVIDERS: ADMIT Hospitalist; ATTEND Hospitalist
DX: I10 Essential (primary) hypertension (principal); I08.1 Rheumatic disorders of both mitral and tricuspid valves; K21.9 Gastro-esophageal reflux disease without esophagitis; E78.5 Hyperlipidemia, unspecified; Z79.82 Long term (current) use of aspirin; Z79.899 Other long term (current) drug therapy; Z98.42 Cataract extraction status, left eye; Z82.49 Family history of ischemic heart disease and other diseases of the circulatory system; Z88.5 Allergy status to narcotic agent
CPT/HCPCS: 36415; 71046; 80053; 80061; 82550; 82553; 83735; 84484; 85025; 85610; 85730; 93005; 93306; 96374; 99285

== ENCOUNTER → 2018-05-28 | Outpatient (CLI) | payer MEDICARE ==
--- NOTE | 2018-05-28 13:37 | US ---
EXAMINATION TYPE: US carotid duplex BILAT DATE OF EXAM: 05/28/2018 COMPARISON: NONE CLINICAL HISTORY: I65.28 OCCLUSION AND STENOSIS OF CAROTID ARTERY; patient is unaware of any related symptoms EXAM MEASUREMENTS: RIGHT: Peak Systolic Velocity (PSV) cm/sec ----- Right CCA: 78.2 ----- Right ICA: 90.8 ----- Right ECA: 168.6 ICA/CCA ratio: 1.2 RIGHT: End Diastole cm/sec ----- Right CCA: 19.7 ----- Right ICA: 17.1 ----- Right ECA: 32.7 LEFT: Peak Systolic Velocity (PSV) cm/sec ----- Left CCA: 85.3 ----- Left ICA: 95.2 ----- Left ECA: 180.3 ICA/CCA ratio: 1.1 LEFT: End Diastole cm/sec ----- Left CCA: 17.1 ----- Left ICA: 27.0 ----- Left ECA: 20.0 VERTEBRALS (direction of flow): Right Vertebral: Antegrade Left Vertebral: Antegrade Rhythm: Normal Abnormally elevated PSV is noted in proximal bilateral ECA at irregular wall plaque. Patient requested copy of this result to her associate faculty, Dr Willams. IMPRESSION: 1. Mild degree of grayscale atheromatous plaquing with no sonographically evident hemodynamically si gnificant stenosis within either internal nor common carotid arterial system. 2. 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 Criteria for Assigning % of Stenosis / Diameter reduction (Estimation based on the indirect measurements of the internal carotid artery velocities (ICA PSV). 1. Normal (no stenosis)=ICA PSV < 125 cm/s: ratio < 2.0: ICA EDV<40 cm/s. 2. Less than 50% stenosis=ICA PSV < 125 cm/s: ratio < 2.0: ICA EDV<40 cm/s. 3. 50 to 69% stenosis=ICA PSV of 125 to 230 cm/s: ration 2.0 ? 4.0: ICA EDV 40-100 cm/s. 4. Greater than 70% stenosis to near occlusion= ICA PSV > 230 cm/s: ratio > 4.0: ICA EDV > 100 cm/s. 5. Near occlusion= ICA PSV velocities may be low or undetectable: variable ratio and ICA EDV. 6. Total occlusion=unable to detect flow.
== END | disposition home or self-care (01) ==
LOC: RADUSWWP 10:29
PROVIDERS: ATTEND Nurse Practitioner Adult Health
DX: I65.23 Occlusion and stenosis of bilateral carotid arteries (principal)
CPT/HCPCS: 93880

== ENCOUNTER 2021-04-06 11:29 | Emergency (ER) | payer MEDICARE ==
--- NOTE | 2021-04-06 13:27 | ED ---
General Adult HPI - General Chief complaint: Upper Respiratory Infection Stated complaint: Covid +, wants BAM Source: patient Mode of arrival: ambulatory Limitations: no limitations - History of Present Illness Initial comments: 81-year-old female presents medical history of hypertension presents to the emergency department requesting antibodies. States that she is Covid positive. She began having symptoms on the which included a cough, chills and fever. She took a Covid test through a pharmacy on the and it came back positive. She spoke with her doctor who recommended that she come in for antibody infusion due to her advanced age. Denies history of underlying pulmonary issues. Patient reports that her fevers have improved at this time. Denies any chest pain or shortness of breath at this time. No nausea or vomiting. No other alleviating, precipitating or modifying factors - Related Data Home Medications Medication Instructions Recorded Confirmed Aspirin 81 mg PO DAILY 04/01/15 05/14/18 Famotidine [Pepcid AC] 10 mg PO BID PRN 05/14/18 05/14/18 Previous Rx's Medication Instructions Recorded Acetaminophen Tab [Tylenol] 650 mg PO Q6HR PRN tab 05/15/18 Losartan [Cozaar] 100 mg PO QAM #30 tab 05/15/18 Nitroglycerin Sl Tabs [Nitrostat] 0.4 mg SUBLINGUAL Q5M PRN #30 tab 05/15/18 amLODIPine [Norvasc] 5 mg PO DAILY #30 tab 05/15/18 Allergies Allergy/AdvReac Type Severity Reaction Status Date / Time naproxen [From Aleve] Allergy elevated Verified 04/06/21 12:13 b/p,generalized skin redness Review of Systems ROS Statement: Those systems with pertinent positive or pertinent negative responses have been documented in the HPI. ROS Other: All systems not noted in ROS Statement are negative. Past Medical History Past Medical History: Eye Disorder, GERD/Reflux, Hyperlipidemia, Hypertension Additional Past Medical History / Comment(s): Rt Cataract REMOVED 06/09/17; HAS LT CATARACT. C/O CONSTIPATION. History of Any Multi-Drug Resistant Organisms: None Reported Past Surgical History: Hernia Repair, Orthopedic Surgery Additional Past Surgical History / Comment(s): Bunion Al Feet. EXC RT CATARACT. I&D OF SPINAL SITE. Past Anesthesia/Blood Transfusion Reactions: Family History of Problems w/ Anesthesia, Motion Sickness Additional Past Anesthesia/Blood Transfusion Reaction / Comment(s): SISTER TAKES LONG TIME TO AWAKEN. Past Psychological History: No Psychological Hx Reported Smoking Status: Never smoker Past Alcohol Use History: None Reported Past Drug Use History: None Reported - Past Family History Mother Family Medical History: Congestive Heart Failure (CHF), Deep Vein Thrombosis ( DVT) Brother(s) Family Medical History: Cancer Sister(s) Family Medical History: Cancer General Exam Limitations: no limitations General appearance: alert, in no apparent distress Head exam: Present: atraumatic, normocephalic, normal inspection Eye exam: Present: normal appearance, PERRL, EOMI. Absent: scleral icterus, conjunctival injection, periorbital swelling ENT exam: Present: normal exam, mucous membranes moist Neck exam: Present: normal inspection. Absent: tenderness, meningismus, lymphadenopathy Respiratory exam: Present: normal lung sounds bilaterally. Absent: respiratory distress, wheezes, rales, rhonchi, stridor Cardiovascular Exam: Present: regular rate, normal rhythm, normal heart sounds. Absent: systolic murmur, diastolic murmur, rubs, gallop, clicks GI/Abdominal exam: Present: soft, normal bowel sounds. Absent: distended, tenderness, guarding, rebound, rigid Extremities exam: Present: normal inspection, full ROM, normal capillary refill. Absent: tenderness, pedal edema, joint swelling, calf tenderness Back exam: Present: normal inspection Neurological exam: Present: alert, oriented X3, CN II-XII intact Psychiatric exam: Present: normal affect, normal mood Skin exam: Present: warm, dry, intact, normal color. Absent: rash Course Vital Signs 04/06/21 12:10 Temperature 99 F Pulse Rate 77 Respiratory 18 Rate Blood Pressure 141/74 O2 Sat by Pulse 98 Oximetry Medical Decision Making - Medical Decision Making Upon arrival patient is placed into room 19. Thorough history and physical exam is performed. Patient has no increased work of breathing at this time. She maintains saturations of 98%. Patient is an antibody infusion without issue. She'll be discharged home at this time. She does have a pulse ox at home and is instructed to return for any oxygenation less than 80%. Also return for any new or worsening symptoms. Patient agreed to the treatment plan was discharged home in stable condition Disposition Clinical Impression: COVID-19 Disposition: HOME SELF-CARE Condition: Stable Instructions (If sedation given, give patient instructions): Coronavirus Disease 2019 (COVID-19) Additional Instructions: Please check your pulse ox at home and return for any oxygenation less than 90%. Also return for any new or worsening symptoms. Follow-up with your doctor within 2-4 days. You may take Tylenol for fever control. Is patient prescribed a controlled substance at d/c from ED?: No Referrals: Mauro Richter MD [Primary Care Provider] - 1-2 days Time of Disposition: 13:26
[2021-04-06] MEDS ORDERED: BAMLANIVIMAB (EUA) 700 MG, ETESEVIMAB (EUA) 1,400 MG in SODIUM CHLORIDE 0.9% 50 ML IVPB ONE (13:30)
[2021-04-06] MEDS ORDERED: SODIUM CHLORIDE 0.9% 50 ML IVPB ONE (13:30)
[2021-04-06 15:10] VITALS: BP 134/62; PULSE 75; RESP 17; TEMP 98.2
== END 2021-04-06 15:10 | disposition home or self-care (01) ==
LOC: EC 11:29
DX: U07.1 COVID-19 (principal); E78.5 Hyperlipidemia, unspecified; I10 Essential (primary) hypertension; Z79.899 Other long term (current) drug therapy
CPT/HCPCS: 99283; 96365; J3490

== ENCOUNTER → 2021-04-24 | Outpatient (CLI) | payer MEDICARE ==
--- NOTE | 2021-04-24 17:11 | CT ---
EXAMINATION TYPE: CT chest wo con DATE OF EXAM: 04/24/2021 COMPARISON: CT chest 11/09/2018 HISTORY: Follow up scan per patient pulmonary fibrosis, J 84.10 CT DLP: 108.5 mGycm. Automated Exposure Control for Dose Reduction was Utilized. TECHNIQUE: CT scan of the thorax is performed without IV contrast. FINDINGS: Lack of intravenous contrast could compromise sensitivity. LUNGS: The lungs are grossly clear, there is no concerning parenchymal mass or nodule identified. Ike cified granuloma are present. There is no pleural effusion or pneumothorax seen. The tracheobronchi al tree is patent. MEDIASTINUM: Lack of IV contrast is noted to limit evaluation for mediastinal and especially hilar ad enopathy. There are no definitive greater than 1 cm hilar or mediastinal lymph nodes. Calcified arcenio r and mediastinal nodes are present. Biapical pleural thickening is present. No cardiomegaly or peric ardial effusion is seen. OTHER: Calcification with scar at the upper pole the left kidney shows a similar appearance. Aorta sh ows atheromatous change. There are coronary artery calcifications present. Ascending aorta measures 3 .9 cm. IMPRESSION: Old granulomatous disease. Borderline aortic aneurysm. Noncontrast exam. Coronary artery disease. Probable remote insult to the left kidney with an area of dystrophic calcification. Findings similar to prior exam.
== END | disposition home or self-care (01) ==
LOC: RADCTMAIN 13:34
PROVIDERS: ATTEND Family Medicine
DX: I25.10 Atherosclerotic heart disease of native coronary artery without angina pectoris (principal); I71.9 Aortic aneurysm of unspecified site, without rupture
CPT/HCPCS: 71250

== ENCOUNTER → 2021-07-22 | Outpatient (CLI) | payer MEDICARE ==
--- NOTE | 2021-07-22 19:42 | CT ---
EXAMINATION TYPE: CT brain wo con DATE OF EXAM: 07/22/2021 COMPARISON: Tremors. Family history of Parkinson's HISTORY: tremors, family hx of Parkinson's CT DLP: 981.7 mGycm Automated exposure control for dose reduction was used. TECHNIQUE: CT scan of the brain is performed without IV contrast administration. FINDINGS: Generalized age-related brain volume loss changes. Scattered arterial atherosclerotic calcifications. No acute intracranial hemorrhage. No gross acute cortical infarct. No midline shift, herniation or v entriculectomy. Unremarkable carranza-white matter differentiation, basal cisterns, sella and CP angles. No gross space-o ccupying lesion, vasogenic edema or mass effect. No gross orbital abnormality. Clear visualized paranasal sinuses and right mastoid air cells. Minimal opacification of the left inferior mastoid air cells. Unremarkable calvarial bones. IMPRESSION: No acute intracranial abnormality or gross space-occupying lesion by this nonenhanced CT scan. Please note that Parkinson's disease or other neurodegenerative disease cannot be excluded by this CT scan. Incidental findings as described above.
== END | disposition home or self-care (01) ==
LOC: RADCTMAIN 16:15
PROVIDERS: ATTEND Family Medicine
DX: R25.1 Tremor, unspecified (principal)
CPT/HCPCS: 70450

== ENCOUNTER → 2023-03-20 | Outpatient (CLI) | payer MEDICARE ==
--- NOTE | 2023-03-20 20:14 | CT ---
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 Coronal/sagittal reconstructions performed. CT DLP: 335mGycm. Automatic exposure control utilized for a dose reduction. FINDINGS: The heart is upper limits of normal in size of a pericardial effusion. Extensive three-vessel coronar y artery calcifications are present. Ectatic ascending aorta 3.7 cm. Mild atherosclerotic arch calcifications with conventional arch vesse l branching anatomy. Numerous calcified mediastinal and hilar lymph nodes compatible with prior granulomatous disease. Scattered calcified granulomas redemonstrated within the lungs. Biapical pleural parenchymal scarring . 5 mm nodularity posterior right upper lobe remains unchanged on axial image 18. Mild reticular change in the lower lungs likely mild fibrosis. No honeycombing or dominant groundglas s change. Visualized upper abdomen again shows an area of cortical calcification measuring 1.3 cm lateral upper left kidney. Stability from 2020 suggests a benign etiology. Bones: No osseous destructive process. IMPRESSION: 1. Extensive mediastinal and hilar calcified adenopathy compatible with prior granulomatous disease. Additional scattered calcified granulomas in the lungs. 2. There may be some mild scattered interstitial fibrosis. However, there is no dominant groundglass change or honeycombing. Overall appearance is similar to 202.
== END | disposition home or self-care (01) ==
LOC: RADCTMAIN 14:26
PROVIDERS: ATTEND Family Medicine
DX: J84.112 Idiopathic pulmonary fibrosis (principal); R59.0 Localized enlarged lymph nodes
CPT/HCPCS: 71250